=== PATIENT | female | born 1995 | race Two or more races ===

== ENCOUNTER 2024-09-08 18:36 | Emergency (ER) | payer OTHER ==
[~2024-09-08] VITALS: Ht 167.6 cm; Wt 57.2 kg
[2024-09-08 23:00] LABS: HEMATOCRIT 39.3 % (36.0-45.00); HEMOGLOBIN 13.4 g/dL (12.0-15.00); MEAN CELL VOLUME 92.8 fL (80.00-100.00); MEAN CORPUSCULAR HEMOGLOBIN 31.6 pg (27.00-32.0); MEAN CORPUSCULAR HGB CONC 34.1 g/dl (32.0-36.0); PLATELET COUNT 282 K/uL (150-450); RED BLOOD COUNT 4.24 M/uL (4.00-6.00); RED CELL DISTRIBUTION WIDTH 13.2 % (11.5-14.5)
[2024-09-08 23:26] LABS: ALBUMIN 4.1 gm/dL (3.4-5.0); BILIRUBIN TOTAL 0.26 mg/dL (0.3-1.2); CALCIUM 9.6 mg/dL (8.5-10.1); CREATININE SERUM 0.7 mg/dL (0.55-1.02); GFR 98.25; GLOBULINA 4.4 G/DL (2.4-3.5); POTASSIUM 4.28 mEq/L (3.5-5.1); TOTAL PROTEIN 8.5 gm/dL (6.4-8.2)
[2024-09-09] MEDS ORDERED: ACETAMINOPHEN500 M1 PO (00:11)
[2024-09-09] MEDS ORDERED: GILTUSS COUGH-118 M1 PO (00:11)
== END 2024-09-09 00:29 | disposition home or self-care (01) ==
LOC: ER 18:38
PROVIDERS: Preventive Medicine Public Health & General Preventive Medicine
DX: B34.9 Viral infection, unspecified (principal); Z20.822 Contact with and (suspected) exposure to COVID-19; Z88.6 Allergy status to analgesic agent

== ENCOUNTER 2024-11-30 15:18 | Outpatient (CLI) | payer OTHER ==
[~2024-11-30 15:18] MED LIST: ACETAMINOPHEN500 M1 PO; GILTUSS COUGH-118 M1 PO
[2024-11-30 16:09] LABS: CREATININE SERUM 0.76 mg/dL (0.55-1.02)
== END 2024-11-30 15:19 | disposition home or self-care (01) ==
LOC: LAB 15:18
PROVIDERS: ATTEND Radiology Diagnostic Radiology
DX: R10.9 Unspecified abdominal pain (principal)

== ENCOUNTER 2024-12-02 09:02 | Emergency (ER) | payer OTHER ==
[~2024-12-02] VITALS: Ht 167.6 cm; Wt 57.6 kg
[2024-12-02] MEDS ORDERED: TRAMADOL HCL 50 MG TABLET PO STA (10:01)
[2024-12-02 10:42] LABS: BASO % 0.2 % (0.1-1.2); EOS # 0.02 (0.04-0.54); EOS % 0.5 % (0.7-7.0); HEMATOCRIT 36.9 % (34.1-44.9); HEMOGLOBIN 12.3 g/dL (11.2-15.7); LYMPH % 38.6 % (19.3-53.1); MEAN CORPUSCULAR HEMOGLOBIN 30.4 pg (25.6-32.2); MONO # 0.38 (0.24-0.82); MONO % 8.6 % (4.7-12.5); NEUT # 2.29 (1.56-6.13); NEUT % 52.1 % (34.0-71.1); PLATELET COUNT 247 K/uL (163-369); RED BLOOD COUNT 4.05 M/uL (3.93-5.22); RED CELL DISTRIBUTION WIDTH 12.3 % (11.6-14.4)
[2024-12-02 12:00] LABS: CALCIUM 9.4 mg/dL (8.5-10.1); CREATININE SERUM 0.79 mg/dL (0.55-1.02); GFR 84.34; POTASSIUM 3.89 mEq/L (3.5-5.1)
== END 2024-12-02 13:10 | disposition home or self-care (01) ==
LOC: ER 09:02
DX: R10.2 Pelvic and perineal pain (principal); Z88.6 Allergy status to analgesic agent; N94.0 Mittelschmerz